=== PATIENT | female | born 1940 | race Caucasian/White ===

== ENCOUNTER 2017-03-11 10:29 | Inpatient (IN) | payer MEDICARE, BC ==
[~2017-03-11] VITALS: Ht 170.2 cm; Wt 72.8 kg
[~2017-03-11 10:29] MED LIST: ATEN25TA PO; DICL75TA5 PO; SIMV20TA5 PO; TRIA1CAP6 PO
[2017-03-11 11:10] LABS: CLARITY,URINE CLOUDY (Clear); GLUCOSE, URINE NEGATIVE (Neg); KETONES,URINE NEGATIVE (Neg); LEUKOCYTE ESTERASE ,URINE NEGATIVE (Neg); NITRITES, URINE NEGATIVE (Neg); OCCULT BLOOD,URINE NEGATIVE (Neg); PROTEIN,URINE NEGATIVE (Neg)
[2017-03-11 11:22] LABS: COLOR,URINE DARK YELLOW (Yellow); UA COLLECTION TYPE CLN CATCH MIDSTREAM
[2017-03-11 11:29] LABS: BACTERIA,URINE 2+ /HPF (Neg); MUCUS STRANDS MODERATE /LPF (Neg); RBC,URINE 0-2 /HPF (0-2); SQUAMOUS EPITHELIAL CELL,UR MANY /LPF (FEW); WBC,URINE 0-4 /HPF (0-4)
[2017-03-11 11:30] LABS: CAL OXALATE CRYSTALS FEW /HPF (NEGATIVE)
[2017-03-11] MEDS ORDERED: normal saline 1000ML IV soln IVB ONE (11:45)
[2017-03-11] MEDS ORDERED: ondansetron/PF 4mg/2ml inj IV ONE (11:45)
[2017-03-11] MEDS ORDERED: morphine 5 MG/ML injection IM ONE (11:45)
[2017-03-11 11:56] LABS: BASOPHILS # (AUTO) 0.1 X10'3 (0-0.2); BASOPHILS % (AUTO) 0.9 % (0-1); EOSINOPHILS # (AUTO) 0.1 X10'3 (0-0.9); EOSINOPHILS % (AUTO) 1.4 % (0-6); HEMATOCRIT 38.2 % (35.0-45.0); HEMOGLOBIN 12.9 g/dl (12.0-16.0); LYMPHOCYTES # (AUTO) 1.1 X10'3 (1.1-4.8); MEAN CORPUSCULAR HEMOGLOBIN 30.7 PG (27.0-31.0); MEAN CORPUSCULAR HGB CONC 33.8 % (33.0-36.5); MEAN CORPUSCULAR VOLUME 90.8 FL (78-98); MEAN PLATELET VOLUME 7.4 FL (7.4-10.4); MONOCYTES # (AUTO) 0.6 X10'3 (0-0.9); MONOCYTES % (AUTO) 7.4 % (2-12); NEUTROPHILS # (AUTO) 6.4 X10'3 (1.8-7.7); NEUTROPHILS % (AUTO) 77.3 % (42-75); PLATELET COUNT 358 X10'3 (140-440); RED CELL DISTRIBUTION WIDTH 13.4 % (11.5-14.5); WHITE BLOOD COUNT 8.3 X10'3 (4.5-11.0)
[2017-03-11 12:14] LABS: ALANINE AMINOTRANSFERASE 371 U/L (12-78); ALBUMIN 3.6 G/DL (3.4-5.0); ALBUMIN/GLOBULIN RATIO 0.9 (1.1-1.5); ALKALINE PHOSPHATASE 323 IU/L (46-116); AMYLASE 122 U/L (25-115); ANION GAP 12 (8-16); ASPARTATE AMINO TRANSFERASE 167 U/L (10-37); BILIRUBIN,TOTAL 7.6 MG/DL (0.1-1.0); BLOOD UREA NITROGEN 35 MG/DL (7-18); BUN/CREATININE RATIO 25.9 (6.6-38.0); CALCIUM 9.7 MG/DL (8.5-10.1); CHLORIDE 92 MMOL/L (99-107); CREATININE 1.35 MG/DL (0.40-0.90); GLUCOSE 146 MG/DL (70-104); LIPASE 1399 U/L (73-393); POTASSIUM 4.6 MMOL/L (3.5-5.1); SODIUM 130 MMOL/L (135-145); TOTAL CARBON DIOXIDE 26.3 MMOL/L (24-32); TOTAL PROTEIN 7.8 G/DL (6.4-8.2); eGFR 38 ML/MIN
[2017-03-11] MEDS ORDERED: piperacillin/tazo 3.375gm/50ml 50 ML IV STA (12:50)
[2017-03-11] MEDS: normal saline 1000ml 1,000 ML IV SCH ×3 (13:22→19:35)
[2017-03-11] MEDS ORDERED: HYDROmorphone 1 mg/ml syringe IV PRN ×2 (13:25)
[2017-03-11] MEDS ORDERED: magnesium 4gm in 100ml NS 100 ML IV PRN (13:25)
[2017-03-11] MEDS ORDERED: magnesium 2GM in 50ml NS 50 ML IV PRN (13:25)
[2017-03-11] MEDS ORDERED: metoclopramide 5 mg/ml inj IV PRN (13:25)
[2017-03-11] MEDS ORDERED: acetaminophen 325mg tablet PO PRN ×2 (13:25)
[2017-03-11] MEDS ORDERED: potassium Cl 20 mEq SR tablet PO PRN ×2 (13:25)
[2017-03-11] MEDS ORDERED: acetaminophen 650mg rectal suppository RC PRN (13:25)
[2017-03-11] MEDS ORDERED: magnesium Cl slow-release 64mg tablet PO PRN (13:25)
[2017-03-11] MEDS ORDERED: morphine sulfate 8 MG/ML SYRINGE IV PRN (13:25)
[2017-03-11] MEDS ORDERED: magnesium hydroxide 30ml (MOM) UD suspension PO PRN (13:25)
[2017-03-11] MEDS ORDERED: ondansetron/PF 4mg/2ml inj IV PRN (13:25)
[2017-03-11] MEDS ORDERED: potassium Cl 40MEQ/NS 500ml 500 ML IV PRN ×2 (13:25)
[2017-03-11] MEDS ORDERED: mag hydrox/Alum hydrox/simeth 30ml oral suspension PO PRN (13:25)
[2017-03-11] MEDS ORDERED: bisacodyl 10mg suppository rectal RC PRN (13:25)
[2017-03-11] MEDS ORDERED: LISI-604 PO (14:48)
[2017-03-11 18:55] VITALS: BP 121/67
[2017-03-11 20:00] VITALS: BP 97/54
[2017-03-11] MEDS: LORazepam 1 MG tablet PO PRN (22:00)
[2017-03-12] VITALS (21 sets, daily range): BP systolic 98–142; BP diastolic 53–84
[2017-03-12] MEDS: normal saline 1000ml 1,000 ML IV SCH ×2 (04:50→22:04)
[2017-03-12 06:45] LABS: BASOPHILS % (AUTO) 0.4 % (0-1); EOSINOPHILS # (AUTO) 0.2 X10'3 (0-0.9); EOSINOPHILS % (AUTO) 3.1 % (0-6); HEMATOCRIT 32.9 % (35.0-45.0); LYMPHOCYTES # (AUTO) 1.1 X10'3 (1.1-4.8); LYMPHOCYTES % (AUTO) 16.7 % (21-51); MEAN CORPUSCULAR HEMOGLOBIN 30.9 PG (27.0-31.0); MEAN CORPUSCULAR HGB CONC 33.5 % (33.0-36.5); MEAN CORPUSCULAR VOLUME 92.1 FL (78-98); MEAN PLATELET VOLUME 7.8 FL (7.4-10.4); MONOCYTES # (AUTO) 0.8 X10'3 (0-0.9); MONOCYTES % (AUTO) 11.3 % (2-12); NEUTROPHILS # (AUTO) 4.7 X10'3 (1.8-7.7); NEUTROPHILS % (AUTO) 68.5 % (42-75); PLATELET COUNT 318 X10'3 (140-440); RED BLOOD COUNT 3.58 X10'6 (4.20-5.60); RED CELL DISTRIBUTION WIDTH 13.8 % (11.5-14.5); WHITE BLOOD COUNT 6.8 X10'3 (4.5-11.0)
[2017-03-12 06:48] LABS: MAGNESIUM 2.4 MG/DL (1.5-2.4)
[2017-03-12] MEDS: K and/or MAG REPLACEMENT MC SCH ×2 (08:00→08:10)
[2017-03-12 09:01] LABS: ALANINE AMINOTRANSFERASE 305 U/L (12-78); ALBUMIN 3.1 G/DL (3.4-5.0); ALBUMIN/GLOBULIN RATIO 0.9 (1.1-1.5); ALKALINE PHOSPHATASE 265 IU/L (46-116); ASPARTATE AMINO TRANSFERASE 124 U/L (10-37); BILIRUBIN,DIRECT 6.4 MG/DL (0-0.3); BILIRUBIN,TOTAL 7.9 MG/DL (0.1-1.0); TOTAL PROTEIN 6.5 G/DL (6.4-8.2)
[2017-03-12] MEDS ORDERED: fentaNYL/PF 50MCG/1 ML 2ML syringe ONE (15:07)
[2017-03-12] MEDS ORDERED: meperidine/PF 100mg/ml syringe ONE (15:07)
[2017-03-12] MEDS ORDERED: MIDAZolam 1mg/ml 10ml vial ONE (15:07)
[2017-03-12] MEDS ORDERED: iohexol 300 MG/1 ML 50ml polymer ONE (15:08)
[2017-03-12] MEDS ORDERED: diphenhydrAMINE 50 mg/ml inj ONE (15:08)
[2017-03-12] MEDS ORDERED: LIDOcaine Viscous 15ml cup ONE (15:08)
[2017-03-12] MEDS ORDERED: glucagon, human recombinant 1mg kit ONE (15:08)
[2017-03-12] MEDS ORDERED: levoFLOXACIN-Levaquin 500mg/D5 100 ML IV ONE ×2 (15:08→15:35)
[2017-03-12] MEDS ORDERED: normal saline 1000ml 1,000 ML IV SCH (15:31)
[2017-03-12] MEDS ORDERED: glucagon, human recombinant 1mg kit IV PRN (15:35)
[2017-03-12] MEDS ORDERED: MIDAZolam 5mg/5ml vial IV PRN (15:35)
[2017-03-12] MEDS ORDERED: ringers solution, lacted 1,000 ML IV ONE (15:35)
[2017-03-12] MEDS ORDERED: iohexol 300 MG/1 ML 50ml polymer IV ONE (15:35)
[2017-03-12] MEDS ORDERED: LIDOcaine Viscous 15ml cup PO ONE (15:35)
[2017-03-12] MEDS ORDERED: fentaNYL/PF 50MCG/1 ML 2ML syringe IV PRN (15:35)
[2017-03-12] MEDS ORDERED: diatrozoate meglu/diatrozoate sod (37% iodine) 120ML oral solution PO SCH (22:00)
[2017-03-12] MEDS: diatr meglu/diatrizoate 30ml oral sol.-(3 dose) bottle PO SCH (22:59)
[2017-03-12] MEDS: LORazepam 1 MG tablet PO PRN (23:05)
[2017-03-13 04:30] VITALS: BP 113/67
[2017-03-13] MEDS: normal saline 1000ml 1,000 ML IV SCH ×2 (05:22→07:38)
[2017-03-13 06:00] LABS: BASOPHILS % (AUTO) 0.4 % (0-1); EOSINOPHILS # (AUTO) 0.2 X10'3 (0-0.9); EOSINOPHILS % (AUTO) 2.2 % (0-6); HEMATOCRIT 36.5 % (35.0-45.0); HEMOGLOBIN 12.4 g/dl (12.0-16.0); LYMPHOCYTES # (AUTO) 1.7 X10'3 (1.1-4.8); MEAN CORPUSCULAR HEMOGLOBIN 30.9 PG (27.0-31.0); MEAN CORPUSCULAR HGB CONC 33.9 % (33.0-36.5); MEAN CORPUSCULAR VOLUME 91.2 FL (78-98); MEAN PLATELET VOLUME 7.8 FL (7.4-10.4); MONOCYTES # (AUTO) 0.5 X10'3 (0-0.9); MONOCYTES % (AUTO) 6.9 % (2-12); NEUTROPHILS # (AUTO) 5.2 X10'3 (1.8-7.7); NEUTROPHILS % (AUTO) 68.5 % (42-75); PLATELET COUNT 354 X10'3 (140-440); RED CELL DISTRIBUTION WIDTH 13.6 % (11.5-14.5); WHITE BLOOD COUNT 7.6 X10'3 (4.5-11.0)
[2017-03-13 06:24] LABS: ALANINE AMINOTRANSFERASE 328 U/L (12-78); ALBUMIN 3.3 G/DL (3.4-5.0); ALBUMIN/GLOBULIN RATIO 0.8 (1.1-1.5); ALKALINE PHOSPHATASE 290 IU/L (46-116); ASPARTATE AMINO TRANSFERASE 128 U/L (10-37); BILIRUBIN,DIRECT 3.8 MG/DL (0-0.3); BILIRUBIN,TOTAL 4.9 MG/DL (0.1-1.0); LIPASE 1184 U/L (73-393); MAGNESIUM 2.1 MG/DL (1.5-2.4); TOTAL PROTEIN 7.4 G/DL (6.4-8.2)
[2017-03-13] MEDS: diatr meglu/diatrizoate 30ml oral sol.-(3 dose) bottle PO SCH (07:34)
[2017-03-13 08:00] VITALS: BP 127/70
[2017-03-13] MEDS ORDERED: iohexol 300mg/ml 100ml inj. ONE (09:26)
[2017-03-13 11:00] VITALS: BP 127/67
[2017-03-18 08:13] LABS: CARCINOEMBRYONIC ANTIGEN 5.8 ng/mL (0.0-4.7)
== END 2017-03-13 17:18 | disposition home or self-care (01) | DRG 438 ==
LOC: ER 10:30 → ED HOLD 13:26 → SUR 3N 15:45
PROVIDERS: ADMIT Internal Medicine; ATTEND Internal Medicine
PROC: 0F798DZ Dilation of Common Bile Duct with Intraluminal Device, Via Natural or Artificial Opening Endoscopic (ICD-10-PCS; principal; 2017-03-12)
PROC: BF101ZZ Fluoroscopy of Bile Ducts using Low Osmolar Contrast (ICD-10-PCS; 2017-03-12)
PROC: 0FB98ZX Excision of Common Bile Duct, Via Natural or Artificial Opening Endoscopic, Diagnostic (ICD-10-PCS; 2017-03-12)
PROC: BW211ZZ Computerized Tomography (CT Scan) of Abdomen and Pelvis using Low Osmolar Contrast (ICD-10-PCS; 2017-03-13)
DX: K85.10 Biliary acute pancreatitis without necrosis or infection (principal); N17.0 Acute kidney failure with tubular necrosis; K83.1 Obstruction of bile duct; E87.1 Hypo-osmolality and hyponatremia; K80.61 Calculus of gallbladder and bile duct with cholecystitis, unspecified, with obstruction; F17.210 Nicotine dependence, cigarettes, uncomplicated; E78.5 Hyperlipidemia, unspecified; E86.1 Hypovolemia; I10 Essential (primary) hypertension; R73.03 Prediabetes; R74.0 Nonspecific elevation of levels of transaminase and lactic acid dehydrogenase [LDH]; R74.8 Abnormal levels of other serum enzymes; Z91.048 Other nonmedicinal substance allergy status; Z79.899 Other long term (current) drug therapy
CPT/HCPCS: 36415; 74178; 76700; 80053; 80076; 81001; 82150; 82378; 83690; 83735; 85025; 85610; 86301; 87070; 96365; 99285; A4620; G0500; J1200; J1610; J1956; J2175; J2250; J2405; J2543; J3010; J7030; Q9963; Q9967

== ENCOUNTER 2017-12-28 16:50 | Inpatient (IN) | payer MEDICARE, BC ==
[~2017-12-28] VITALS: Ht 171.4 cm; Wt 52.7 kg
[~2017-12-28 16:50] MED LIST changes: -ATEN25TA PO; -DICL75TA5 PO; +LISI-604 PO
[2017-12-28] MEDS ORDERED: normal saline 1000ML IV soln IVB ONE (17:05)
[2017-12-28] MEDS ORDERED: ondansetron/PF 4mg/2ml inj IV ONE (17:05)
[2017-12-28 17:40] LABS: INR 1.5 INR; PROTHROMBIN TIME 14.9 SECONDS (9.0-12.0)
[2017-12-28 17:42] LABS: ALANINE AMINOTRANSFERASE 40 U/L (12-78); ALBUMIN 2.7 G/DL (3.4-5.0); ALKALINE PHOSPHATASE 56 IU/L (46-116); ANION GAP 5 (8-16); ASPARTATE AMINO TRANSFERASE 20 U/L (10-37); BILIRUBIN,TOTAL 0.8 MG/DL (0.1-1.0); BLOOD UREA NITROGEN 26 MG/DL (7-18); CALCIUM 8.3 MG/DL (8.5-10.1); CHLORIDE 88 MMOL/L (99-107); CREATININE 1.37 MG/DL (0.40-0.90); GLUCOSE 179 MG/DL (70-104); POTASSIUM 3.1 MMOL/L (3.5-5.1); SODIUM 123 MMOL/L (135-145); TOTAL CARBON DIOXIDE 30.2 MMOL/L (24-32); TOTAL PROTEIN 5.4 G/DL (6.4-8.2); eGFR 37 ML/MIN
[2017-12-28 17:48] LABS: BASOPHILS % (AUTO) 0.1 % (0-1); EOSINOPHILS % (AUTO) 0.4 % (0-6); HEMATOCRIT 36.2 % (35.0-45.0); HEMOGLOBIN 12.3 g/dl (12.0-16.0); LYMPHOCYTES # (AUTO) 0.1 X10'3 (1.1-4.8); LYMPHOCYTES % (AUTO) 5.6 % (21-51); MEAN CORPUSCULAR HEMOGLOBIN 30.1 PG (27.0-31.0); MEAN CORPUSCULAR VOLUME 88.3 FL (78-98); MEAN PLATELET VOLUME 7.5 FL (7.4-10.4); MONOCYTES # (AUTO) 0.1 X10'3 (0-0.9); MONOCYTES % (AUTO) 13.1 % (2-12); NEUTROPHILS # (AUTO) 0.9 X10'3 (1.8-7.7); NEUTROPHILS % (AUTO) 80.8 % (42-75); PLATELET COUNT 176 X10'3 (140-440); RED CELL DISTRIBUTION WIDTH 21.9 % (11.5-14.5); WHITE BLOOD COUNT 1.1 X10'3 (4.5-11.0)
[2017-12-28 18:09] LABS: PLATELET ESTIMATE NORMAL; TOTAL CELLS COUNTED 100
[2017-12-28 18:10] LABS: ANISOCYTOSIS 3+
[2017-12-28 18:11] LABS: ELLIPTOCYTES 1+; POIKILOCYTOSIS 1+; POLYCHROMASIA FEW; SCHISTOCYTES FEW; TEAR DROP CELLS FEW
[2017-12-28 18:15] LABS: TOXIC GRANULATION 2+
[2017-12-28] MEDS ORDERED: POTA20TA19 PO (18:43)
[2017-12-28] MEDS ORDERED: PROC-8 (18:43)
[2017-12-28] MEDS ORDERED: HYDR-4353 PO (18:43)
[2017-12-28] MEDS ORDERED: METF500T PO (18:43)
[2017-12-28] MEDS ORDERED: FURO40TA4 PO (18:43)
[2017-12-28] MEDS ORDERED: ONDA4TAB9 SL (18:43)
[2017-12-28] MEDS ORDERED: GABA600T2 PO ×2 (18:43)
[2017-12-28 19:13] LABS: CLARITY,URINE CLEAR (Clear); COLOR,URINE YELLOW (Yellow); GLUCOSE, URINE NEGATIVE (Neg); KETONES,URINE NEGATIVE (Neg); LEUKOCYTE ESTERASE ,URINE NEGATIVE (Neg); NITRITES, URINE NEGATIVE (Neg); OCCULT BLOOD,URINE NEGATIVE (Neg); PROTEIN,URINE NEGATIVE (Neg); UROBILINOGEN,URINE 0.2 E.U/dL (0.2-1.0)
[2017-12-28 19:15] LABS: UA COLLECTION TYPE STRAIGHT CATH
[2017-12-28] MEDS ORDERED: piperacillin/tazo 3.375gm/50ml 50 ML IV ONE (19:35)
[2017-12-28] MEDS ORDERED: diphenhydrAMINE 25mg capsule PO PRN (20:00)
[2017-12-28] MEDS ORDERED: HYDROmorphone 1 mg/ml syringe IV PRN ×2 (20:00)
[2017-12-28] MEDS ORDERED: HYDROcodone/acetaminophen 10/325mg tab PO PRN (20:00)
[2017-12-28] MEDS ORDERED: diphenhydrAMINE 50 mg/ml inj IV PRN (20:00)
[2017-12-28] MEDS ORDERED: heparin, porcine 5000 units/ml vial SQ SCH (20:00)
[2017-12-28] MEDS: pantoprazole 40 MG vial IV SCH (20:00)
[2017-12-28] MEDS: docusate sod 100mg capsule PO SCH (20:00)
[2017-12-28] MEDS ORDERED: acetaminophen 650mg rectal suppository RC PRN (20:00)
[2017-12-28] MEDS ORDERED: magnesium hydroxide 30ml (MOM) UD suspension PO PRN (20:00)
[2017-12-28] MEDS ORDERED: acetaminophen 325mg tablet PO PRN ×2 (20:00)
[2017-12-28] MEDS ORDERED: mag hydrox/Alum hydrox/simeth 30ml oral suspension PO PRN (20:00)
[2017-12-28] MEDS ORDERED: bisacodyl 10mg suppository rectal RC PRN (20:00)
[2017-12-28] MEDS ORDERED: morphine 2 MG/ML inj. syringe IV PRN ×2 (20:00)
[2017-12-28] MEDS ORDERED: proCHLORperazine 10 MG/2 ml inj IV PRN (20:15)
[2017-12-28] MEDS ORDERED: MESSAGE TO PHARMACY PO ONE (20:15)
[2017-12-28] MEDS ORDERED: dextrose ORAL solution 15 GM/59 ML bottle PO PRN ×2 (20:15)
[2017-12-28] MEDS ORDERED: glucagon, human recombinant 1mg kit SUBCUT PRN (20:15)
[2017-12-28] MEDS ORDERED: insulin Lispro (HumaLOG) vial - multi-dose SQ SCH (20:15)
[2017-12-28] MEDS ORDERED: dextrose 50%-water 50ml dispensing syringe IV PRN ×2 (20:15)
[2017-12-28] MEDS ORDERED: potassium Cl 20 mEq SR tablet PO PRN ×2 (20:15)
[2017-12-28 20:32] LABS: HEMOGLOBIN A1C 7.1 % (4.5-6.2)
[2017-12-28 20:47] LABS: LIPASE < 50 U/L (73-393); TROPONIN I < 0.04 NG/ML (0.0-0.05)
[2017-12-28] MEDS ORDERED: non-formulary drug (Gabapentin 2 TAB) PO SCH (21:00)
[2017-12-28] MEDS ORDERED: temazepam 15mg capsule PO PRN (21:00)
[2017-12-28] MEDS ORDERED: SIMVASTATIN PO SCH (21:00)
[2017-12-28 21:05] VITALS: BP 120/63
[2017-12-28] MEDS: potassium Cl 20mEq in NS 1,000 ML IV SCH (21:08)
[2017-12-28] MEDS: atorvastatin 20mg tablet PO SCH (21:22)
[2017-12-28] MEDS: gabapentin 400mg capsule PO SCH (21:22)
[2017-12-28] MEDS: VANCOMYCIN 750MG IV in NS 250 ML IV SCH (22:20)
[2017-12-29] MEDS: piperacillin-tazo 2.25gm/50ml 50 ML IV SCH ×3 (00:16→16:03)
[2017-12-29] MEDS: psyllium seed 3.4 gm packet PO SCH (00:20)
[2017-12-29 02:00] VITALS: BP 96/54
[2017-12-29 04:15] VITALS: BP 111/54
[2017-12-29 05:00] VITALS: BP 82/52
[2017-12-29] MEDS ORDERED: normal saline 250ml IV soln 250 ML IV ONE (05:10)
[2017-12-29 05:47] VITALS: BP 113/60
[2017-12-29 06:04] LABS: BASOPHILS % (AUTO) 0 % (0-1); EOSINOPHILS % (AUTO) 0.6 % (0-6); HEMOGLOBIN 10.4 g/dl (12.0-16.0); MEAN CORPUSCULAR HGB CONC 33.7 % (33.0-36.5); MONOCYTES # (AUTO) 0.2 X10'3 (0-0.9); MONOCYTES % (AUTO) 10.1 % (2-12); NEUTROPHILS # (AUTO) 1.5 X10'3 (1.8-7.7); NEUTROPHILS % (AUTO) 87.3 % (42-75); PLATELET COUNT 139 X10'3 (140-440); RED BLOOD COUNT 3.48 X10'6 (4.20-5.60); RED CELL DISTRIBUTION WIDTH 20.5 % (11.5-14.5); WHITE BLOOD COUNT 1.7 X10'3 (4.5-11.0)
[2017-12-29 06:25] LABS: ALANINE AMINOTRANSFERASE 34 U/L (12-78); ALBUMIN 2.1 G/DL (3.4-5.0); ALBUMIN/GLOBULIN RATIO 0.9 (1.1-1.5); ALKALINE PHOSPHATASE 50 IU/L (46-116); ANION GAP 9 (8-16); ASPARTATE AMINO TRANSFERASE 26 U/L (10-37); BILIRUBIN,TOTAL 0.8 MG/DL (0.1-1.0); BLOOD UREA NITROGEN 25 MG/DL (7-18); BUN/CREATININE RATIO 18.5 (6.6-38.0); CHLORIDE 94 MMOL/L (99-107); CREATININE 1.35 MG/DL (0.40-0.90); GLUCOSE 161 MG/DL (70-104); SODIUM 129 MMOL/L (135-145); TOTAL CARBON DIOXIDE 26.4 MMOL/L (24-32); TOTAL PROTEIN 4.4 G/DL (6.4-8.2); eGFR 38 ML/MIN
[2017-12-29 06:29] LABS: TOTAL CELLS COUNTED 100
[2017-12-29 06:30] LABS: ANISOCYTOSIS 2+; LARGE PLATELETS FEW; PLATELET ESTIMATE DECREASED; TOXIC GRANULATION 2+
[2017-12-29 06:34] LABS: POTASSIUM 2.7 MMOL/L (3.5-5.1)
[2017-12-29] MEDS: potassium Cl 20mEq in NS 1,000 ML IV SCH ×3 (07:05→19:36)
[2017-12-29] MEDS: docusate sod 100mg capsule PO SCH ×2 (07:15→19:46)
[2017-12-29] MEDS: gabapentin 300mg capsule PO SCH (07:15)
[2017-12-29] MEDS: pantoprazole 40 MG vial IV SCH (07:32)
[2017-12-29] MEDS ORDERED: non-formulary drug (Gabapentin 1 TAB) PO SCH (08:00)
[2017-12-29 10:00] VITALS: BP 98/66
[2017-12-29] MEDS ORDERED: potassium Cl 40MEQ/NS 500ml 500 ML IV PRN ×2 (10:10)
[2017-12-29] MEDS ORDERED: magnesium Cl slow-release 64mg tablet PO PRN (10:10)
[2017-12-29] MEDS ORDERED: dextrose ORAL solution 15 GM/59 ML bottle PO PRN ×2 (10:10)
[2017-12-29] MEDS ORDERED: magnesium 4gm in 100ml NS 100 ML IV PRN (10:10)
[2017-12-29] MEDS ORDERED: glucagon, human recombinant 1mg kit SUBCUT PRN (10:10)
[2017-12-29] MEDS ORDERED: dextrose 50%-water 50ml dispensing syringe IV PRN ×2 (10:10)
[2017-12-29] MEDS ORDERED: MESSAGE TO PHARMACY PO ONE (10:10)
[2017-12-29] MEDS: potassium Cl 20 mEq SR tablet PO PRN ×2 (10:31→16:01)
[2017-12-29] MEDS: VANCOMYCIN 750MG IV in NS 250 ML IV SCH (10:31)
[2017-12-29 11:56] LABS: C DIFF ANTIGEN NEGATIVE (NEGATIVE); C DIFF SPECIMEN=DIARRHEA? ACCEPTABLE; C DIFFICILE TOXINS A&B NEGATIVE (Neg); OCCULT BLOOD STOOL POSITIVE (Neg)
[2017-12-29] MEDS: insulin Lispro (HumaLOG) vial - multi-dose SQ SCH ×2 (13:17→19:32)
[2017-12-29] MEDS: famotidine 20mg tablet PO SCH (13:24)
[2017-12-29] MEDS: ondansetron/PF 4mg/2ml inj IV PRN (16:04)
[2017-12-29] MEDS ORDERED: loperamide 2mg capsule PO ONE (18:50)
[2017-12-29] MEDS: heparin, porcine 5000 units/ml vial SQ SCH (21:16)
[2017-12-29] MEDS: gabapentin 400mg capsule PO SCH (21:16)
[2017-12-29] MEDS: atorvastatin 20mg tablet PO SCH (21:16)
[2017-12-29 22:00] VITALS: BP 102/57
[2017-12-29] MEDS: insulin glargine (Lantus) pen - multi-dose SQ SCH (22:15)
[2017-12-29] MEDS ORDERED: diphenoxylate/atropine tablet (Lomotil) PO ONE (23:40)
[2017-12-30] MEDS: piperacillin-tazo 2.25gm/50ml 50 ML IV SCH ×4 (00:20→23:39)
[2017-12-30 05:00] VITALS: BP 116/58
[2017-12-30 05:47] LABS: BASOPHILS % (AUTO) 0 % (0-1); EOSINOPHILS % (AUTO) 1.4 % (0-6); HEMATOCRIT 30.2 % (35.0-45.0); LYMPHOCYTES % (AUTO) 1.2 % (21-51); MEAN CORPUSCULAR HEMOGLOBIN 29.7 PG (27.0-31.0); MEAN CORPUSCULAR HGB CONC 33.2 % (33.0-36.5); MEAN CORPUSCULAR VOLUME 89.4 FL (78-98); MEAN PLATELET VOLUME 7.2 FL (7.4-10.4); MONOCYTES # (AUTO) 0.5 X10'3 (0-0.9); MONOCYTES % (AUTO) 15.3 % (2-12); NEUTROPHILS # (AUTO) 2.6 X10'3 (1.8-7.7); NEUTROPHILS % (AUTO) 82.1 % (42-75); PLATELET COUNT 133 X10'3 (140-440); RED BLOOD COUNT 3.37 X10'6 (4.20-5.60); RED CELL DISTRIBUTION WIDTH 22.4 % (11.5-14.5); WHITE BLOOD COUNT 3.1 X10'3 (4.5-11.0)
[2017-12-30] MEDS: potassium Cl 20mEq in NS 1,000 ML IV SCH ×2 (05:56→17:59)
[2017-12-30 06:17] LABS: ALANINE AMINOTRANSFERASE 27 U/L (12-78); ALBUMIN/GLOBULIN RATIO 0.8 (1.1-1.5); ALKALINE PHOSPHATASE 47 IU/L (46-116); ANION GAP 7 (8-16); ASPARTATE AMINO TRANSFERASE 18 U/L (10-37); BILIRUBIN,TOTAL 0.5 MG/DL (0.1-1.0); BLOOD UREA NITROGEN 19 MG/DL (7-18); BUN/CREATININE RATIO 18.3 (6.6-38.0); CALCIUM 7.1 MG/DL (8.5-10.1); CHLORIDE 101 MMOL/L (99-107); CREATININE 1.04 MG/DL (0.40-0.90); GLUCOSE 136 MG/DL (70-104); MAGNESIUM 1.8 MG/DL (1.5-2.4); PHOSPHORUS 2.1 MG/DL (2.3-4.5); POTASSIUM 3.2 MMOL/L (3.5-5.1); SODIUM 131 MMOL/L (135-145); TOTAL CARBON DIOXIDE 22.6 MMOL/L (24-32); TOTAL PROTEIN 4.4 G/DL (6.4-8.2); eGFR 52 ML/MIN
[2017-12-30 07:34] LABS: ANISOCYTOSIS 3+; BANDS% (MANUAL) 22 % (0-10); EOSINOPHILS % (MANUAL) 2 % (0-6); LYMPHOCYTES % (MANUAL) 1 % (21-51); MONOCYTES % (MANUAL) 13 % (2-12); NEUTROPHILS % (MANUAL) 62 % (42-75); PLATELET ESTIMATE DECREASED; TOTAL CELLS COUNTED 100
[2017-12-30 07:35] LABS: BURR CELLS 2+; ELLIPTOCYTES FEW; TOXIC GRANULATION 1+
[2017-12-30] MEDS: docusate sod 100mg capsule PO SCH ×2 (08:00→19:05)
[2017-12-30] MEDS: triamterene/HCTZ 37.5/25mg tablet PO SCH (08:00)
[2017-12-30] MEDS: gabapentin 300mg capsule PO SCH (08:20)
[2017-12-30] MEDS: famotidine 20mg tablet PO SCH (08:21)
[2017-12-30] MEDS: heparin, porcine 5000 units/ml vial SQ SCH ×2 (08:22→19:07)
[2017-12-30] MEDS: potassium Cl 20 mEq SR tablet PO PRN ×3 (08:23→20:33)
[2017-12-30] MEDS: insulin Lispro (HumaLOG) vial - multi-dose SQ SCH ×3 (08:42→19:09)
[2017-12-30 09:25] VITALS: BP 96/55
[2017-12-30] MEDS ORDERED: VANCOMYCIN LEVEL IV NR (09:30)
[2017-12-30] MEDS: loperamide 2mg capsule PO PRN ×2 (09:54→20:33)
[2017-12-30] MEDS: HYDROcodone/acetaminophen 5mg/325mg tablet PO PRN (10:36)
[2017-12-30] MEDS: diphenoxylate/atropine tablet (Lomotil) PO PRN ×2 (13:18→20:33)
[2017-12-30 18:00] VITALS: BP 112/70
[2017-12-30] MEDS: gabapentin 400mg capsule PO SCH (20:33)
[2017-12-30] MEDS: atorvastatin 20mg tablet PO SCH (20:33)
[2017-12-30] MEDS: psyllium seed 3.4 gm packet PO SCH (20:35)
[2017-12-30] MEDS: insulin glargine (Lantus) pen - multi-dose SQ SCH (20:44)
[2017-12-30 22:00] VITALS: BP 126/66
[2017-12-31] MEDS: potassium Cl 20mEq in NS 1,000 ML IV SCH ×2 (03:34→13:20)
[2017-12-31 05:00] VITALS: BP 123/74
[2017-12-31] MEDS: triamterene/HCTZ 37.5/25mg tablet PO SCH (08:00)
[2017-12-31] MEDS: docusate sod 100mg capsule PO SCH ×2 (08:00→20:00)
[2017-12-31] MEDS: piperacillin-tazo 2.25gm/50ml 50 ML IV SCH ×2 (08:14→16:49)
[2017-12-31 09:47] LABS: HEMATOCRIT 35.1 % (35.0-45.0); HEMOGLOBIN 11.7 g/dl (12.0-16.0); MEAN CORPUSCULAR HEMOGLOBIN 30.1 PG (27.0-31.0); MEAN CORPUSCULAR HGB CONC 33.3 % (33.0-36.5); MEAN CORPUSCULAR VOLUME 90.4 FL (78-98); MEAN PLATELET VOLUME 7.7 FL (7.4-10.4); PLATELET COUNT 156 X10'3 (140-440); RED BLOOD COUNT 3.88 X10'6 (4.20-5.60); RED CELL DISTRIBUTION WIDTH 23.7 % (11.5-14.5); WHITE BLOOD COUNT 3.1 X10'3 (4.5-11.0)
[2017-12-31 10:00] VITALS: BP 116/57
[2017-12-31 10:01] LABS: ALANINE AMINOTRANSFERASE 28 U/L (12-78); ALBUMIN/GLOBULIN RATIO 0.7 (1.1-1.5); ALKALINE PHOSPHATASE 56 IU/L (46-116); ANION GAP 13 (8-16); ASPARTATE AMINO TRANSFERASE 12 U/L (10-37); BILIRUBIN,TOTAL 0.8 MG/DL (0.1-1.0); BLOOD UREA NITROGEN 15 MG/DL (7-18); BUN/CREATININE RATIO 14.4 (6.6-38.0); CALCIUM 7.2 MG/DL (8.5-10.1); CHLORIDE 104 MMOL/L (99-107); CREATININE 1.04 MG/DL (0.40-0.90); GLUCOSE 170 MG/DL (70-104); MAGNESIUM 1.9 MG/DL (1.5-2.4); PHOSPHORUS 1.9 MG/DL (2.3-4.5); POTASSIUM 3.7 MMOL/L (3.5-5.1); SODIUM 133 MMOL/L (135-145); TOTAL CARBON DIOXIDE 16.1 MMOL/L (24-32); TOTAL PROTEIN 4.8 G/DL (6.4-8.2); eGFR 52 ML/MIN
[2017-12-31] MEDS: insulin Lispro (HumaLOG) vial - multi-dose SQ SCH (10:08)
[2017-12-31] MEDS: heparin, porcine 5000 units/ml vial SQ SCH ×2 (10:18→21:33)
[2017-12-31] MEDS: gabapentin 300mg capsule PO SCH (10:18)
[2017-12-31] MEDS: famotidine 20mg tablet PO SCH (10:18)
[2017-12-31] MEDS ORDERED: heparin sodium, porcine/PF 100unit/ml 5ML syringe IV ONE (13:25)
[2017-12-31] MEDS: sodium bicarbonate (8.4%) inj. 100 MEQ in sodium chloride 0.45% 1,000 ML IV SCH (17:41)
[2017-12-31 18:00] VITALS: BP 105/60
[2017-12-31 19:52] LABS: ANISOCYTOSIS 3+; ELLIPTOCYTES FEW; PLATELET ESTIMATE NORMAL; POIKILOCYTOSIS 1+; TOTAL CELLS COUNTED 100
[2017-12-31 19:53] LABS: BURR CELLS 3+; TOXIC GRANULATION 3+
[2017-12-31] MEDS: atorvastatin 20mg tablet PO SCH (21:00)
[2017-12-31] MEDS: gabapentin 400mg capsule PO SCH (21:00)
[2017-12-31] MEDS: psyllium seed 3.4 gm packet PO SCH (21:00)
[2017-12-31] MEDS: insulin glargine (Lantus) pen - multi-dose SQ SCH (21:53)
[2017-12-31 22:00] VITALS: BP 107/54
[2018-01-01] MEDS: piperacillin-tazo 2.25gm/50ml 50 ML IV SCH ×2 (00:44→10:22)
[2018-01-01 02:00] VITALS: BP 98/48
[2018-01-01] MEDS: sodium bicarbonate (8.4%) inj. 100 MEQ in sodium chloride 0.45% 1,000 ML IV SCH ×2 (04:29→15:58)
[2018-01-01 05:00] VITALS: BP 98/49
[2018-01-01] MEDS: docusate sod 100mg capsule PO SCH ×2 (08:00→20:00)
[2018-01-01 10:00] VITALS: BP 121/56
[2018-01-01] MEDS: triamterene/HCTZ 37.5/25mg tablet PO SCH (10:22)
[2018-01-01] MEDS: gabapentin 300mg capsule PO SCH (10:22)
[2018-01-01] MEDS: famotidine 20mg tablet PO SCH (10:22)
[2018-01-01] MEDS: heparin, porcine 5000 units/ml vial SQ SCH ×2 (10:24→19:02)
[2018-01-01] MEDS: loperamide 2mg capsule PO PRN (10:24)
[2018-01-01] MEDS: HYDROcodone/acetaminophen 5mg/325mg tablet PO PRN (11:28)
[2018-01-01 11:40] LABS: ALANINE AMINOTRANSFERASE 20 U/L (12-78); ALBUMIN 1.7 G/DL (3.4-5.0); ALBUMIN/GLOBULIN RATIO 0.6 (1.1-1.5); ALKALINE PHOSPHATASE 56 IU/L (46-116); ANION GAP 15 (8-16); ASPARTATE AMINO TRANSFERASE 12 U/L (10-37); BLOOD UREA NITROGEN 18 MG/DL (7-18); BUN/CREATININE RATIO 19.1 (6.6-38.0); CALCIUM 7.8 MG/DL (8.5-10.1); CHLORIDE 106 MMOL/L (99-107); CREATININE 0.94 MG/DL (0.40-0.90); GLUCOSE 129 MG/DL (70-104); POTASSIUM 3.1 MMOL/L (3.5-5.1); SODIUM 138 MMOL/L (135-145); TOTAL CARBON DIOXIDE 16.8 MMOL/L (24-32); TOTAL PROTEIN 4.5 G/DL (6.4-8.2); eGFR 58 ML/MIN
[2018-01-01] MEDS: ondansetron/PF 4mg/2ml inj IV PRN ×2 (11:55→19:02)
[2018-01-01 12:24] LABS: BASOPHILS % (AUTO) 0 % (0-1); EOSINOPHILS % (AUTO) 0.9 % (0-6); HEMATOCRIT 29.4 % (35.0-45.0); HEMOGLOBIN 9.8 g/dl (12.0-16.0); LYMPHOCYTES # (AUTO) 0.1 X10'3 (1.1-4.8); MEAN CORPUSCULAR HEMOGLOBIN 30.1 PG (27.0-31.0); MEAN CORPUSCULAR HGB CONC 33.5 % (33.0-36.5); MEAN CORPUSCULAR VOLUME 89.7 FL (78-98); MONOCYTES # (AUTO) 0.4 X10'3 (0-0.9); MONOCYTES % (AUTO) 8.2 % (2-12); NEUTROPHILS # (AUTO) 4.8 X10'3 (1.8-7.7); NEUTROPHILS % (AUTO) 89.9 % (42-75); PLATELET COUNT 118 X10'3 (140-440); RED BLOOD COUNT 3.27 X10'6 (4.20-5.60); RED CELL DISTRIBUTION WIDTH 25.1 % (11.5-14.5); WHITE BLOOD COUNT 5.4 X10'3 (4.5-11.0)
[2018-01-01 12:38] LABS: ANISOCYTOSIS 3+; PLATELET ESTIMATE DECREASED; TOTAL CELLS COUNTED 100; TOXIC GRANULATION 2+
[2018-01-01 12:39] LABS: BURR CELLS 1+; POIKILOCYTOSIS FEW; SCHISTOCYTES FEW
[2018-01-01] MEDS ORDERED: potassium Cl 20 mEq SR tablet PO PRN ×2 (13:15)
[2018-01-01] MEDS ORDERED: magnesium 4gm in 100ml NS 100 ML IV PRN (13:15)
[2018-01-01] MEDS ORDERED: potassium Cl 40MEQ/NS 500ml 500 ML IV PRN (13:15)
[2018-01-01] MEDS ORDERED: magnesium Cl slow-release 64mg tablet PO PRN (13:15)
[2018-01-01 14:08] LABS: MAGNESIUM 1.9 MG/DL (1.5-2.4); PHOSPHORUS 1.8 MG/DL (2.3-4.5)
[2018-01-01] MEDS ORDERED: sodium phosphate inj. 30 MMOL in dextrose 5%-water 250 ML IV ONE (14:25)
[2018-01-01] MEDS: Neutra Phos packet PO SCH ×2 (15:58→23:30)
[2018-01-01 18:00] VITALS: BP 121/57
[2018-01-01] MEDS: amox tr/potassium clavulanate 875/125mg TAB PO SCH (18:07)
[2018-01-01] MEDS: lactobacillus rhamnosus 10,000 MMU CELLS/CAPSULE PO SCH (20:00)
[2018-01-01] MEDS: metoclopramide 5 mg/ml inj IV PRN (20:05)
[2018-01-01] MEDS: psyllium seed 3.4 gm packet PO SCH (20:21)
[2018-01-01] MEDS: atorvastatin 20mg tablet PO SCH (20:21)
[2018-01-01] MEDS: sodium bicarbonate 650mg tablet PO SCH (21:00)
[2018-01-01] MEDS: gabapentin 400mg capsule PO SCH (21:00)
[2018-01-01 22:00] VITALS: BP 114/74
[2018-01-01] MEDS: insulin glargine (Lantus) pen - multi-dose SQ SCH (23:09)
[2018-01-02] MEDS: potassium Cl 40MEQ/NS 500ml 500 ML IV PRN ×2 (00:20→18:56)
[2018-01-02] MEDS: sodium bicarbonate (8.4%) inj. 100 MEQ in sodium chloride 0.45% 1,000 ML IV SCH (03:54)
[2018-01-02 06:00] VITALS: BP 109/68
[2018-01-02 06:58] LABS: ALANINE AMINOTRANSFERASE 20 U/L (12-78); ALBUMIN 1.7 G/DL (3.4-5.0); ALBUMIN/GLOBULIN RATIO 0.7 (1.1-1.5); ALKALINE PHOSPHATASE 57 IU/L (46-116); ANION GAP 15 (8-16); ASPARTATE AMINO TRANSFERASE 10 U/L (10-37); BILIRUBIN,TOTAL 1.1 MG/DL (0.1-1.0); BLOOD UREA NITROGEN 19 MG/DL (7-18); BUN/CREATININE RATIO 19.6 (6.6-38.0); CALCIUM 7.8 MG/DL (8.5-10.1); CHLORIDE 105 MMOL/L (99-107); CREATININE 0.97 MG/DL (0.40-0.90); GLUCOSE 141 MG/DL (70-104); MAGNESIUM 1.8 MG/DL (1.5-2.4); PHOSPHORUS 1.8 MG/DL (2.3-4.5); POTASSIUM 3.5 MMOL/L (3.5-5.1); SODIUM 141 MMOL/L (135-145); TOTAL CARBON DIOXIDE 21.3 MMOL/L (24-32); TOTAL PROTEIN 4.3 G/DL (6.4-8.2); eGFR 56 ML/MIN
[2018-01-02] MEDS: metoclopramide 5 mg/ml inj IV PRN (07:20)
[2018-01-02] MEDS: heparin, porcine 5000 units/ml vial SQ SCH ×2 (07:21→19:20)
[2018-01-02] MEDS: docusate sod 100mg capsule PO SCH (08:00)
[2018-01-02] MEDS: triamterene/HCTZ 37.5/25mg tablet PO SCH (08:00)
[2018-01-02] MEDS: amox tr/potassium clavulanate 875/125mg TAB PO SCH ×2 (08:30→17:06)
[2018-01-02 08:38] LABS: ALANINE AMINOTRANSFERASE 19 U/L (12-78); ALBUMIN 1.8 G/DL (3.4-5.0); ALBUMIN/GLOBULIN RATIO 0.6 (1.1-1.5); ALKALINE PHOSPHATASE 61 IU/L (46-116); ANION GAP 15 (8-16); ASPARTATE AMINO TRANSFERASE 11 U/L (10-37); BILIRUBIN,TOTAL 1.2 MG/DL (0.1-1.0); BLOOD UREA NITROGEN 20 MG/DL (7-18); BUN/CREATININE RATIO 18.9 (6.6-38.0); CALCIUM 8.1 MG/DL (8.5-10.1); CHLORIDE 104 MMOL/L (99-107); CREATININE 1.06 MG/DL (0.40-0.90); GLUCOSE 151 MG/DL (70-104); POTASSIUM 3.4 MMOL/L (3.5-5.1); SODIUM 141 MMOL/L (135-145); TOTAL CARBON DIOXIDE 22.2 MMOL/L (24-32); TOTAL PROTEIN 4.6 G/DL (6.4-8.2); eGFR 50 ML/MIN
[2018-01-02 10:00] VITALS: BP 113/64
[2018-01-02] MEDS: loperamide 2mg capsule PO PRN ×2 (10:37→23:04)
[2018-01-02] MEDS: gabapentin 300mg capsule PO SCH ×2 (10:37→11:13)
[2018-01-02] MEDS: ondansetron/PF 4mg/2ml inj IV PRN (10:37)
[2018-01-02] MEDS: famotidine 20mg tablet PO SCH (10:38)
[2018-01-02] MEDS: sodium bicarbonate 650mg tablet PO SCH ×3 (10:38→20:06)
[2018-01-02] MEDS: lactobacillus rhamnosus 10,000 MMU CELLS/CAPSULE PO SCH ×2 (10:38→19:20)
[2018-01-02] MEDS: Neutra Phos packet PO SCH ×3 (10:39→23:04)
[2018-01-02] MEDS: propranolol 10mg tablet PO SCH ×2 (12:58→19:20)
[2018-01-02] MEDS ORDERED: scopolamine 1.5mg patch.TD72 TD SCH (14:00)
[2018-01-02 18:00] VITALS: BP 108/60
[2018-01-02] MEDS: insulin Lispro (HumaLOG) vial - multi-dose SQ SCH (19:21)
[2018-01-02] MEDS: atorvastatin 20mg tablet PO SCH (20:06)
[2018-01-02] MEDS: gabapentin 400mg capsule PO SCH (20:06)
[2018-01-02] MEDS: psyllium seed 3.4 gm packet PO SCH (20:07)
[2018-01-02] MEDS: insulin glargine (Lantus) pen - multi-dose SQ SCH (20:42)
[2018-01-02 22:00] VITALS: BP 102/53
[2018-01-03 05:00] VITALS: BP 97/48
[2018-01-03] MEDS: heparin, porcine 5000 units/ml vial SQ SCH (08:00)
[2018-01-03] MEDS: sodium bicarbonate 650mg tablet PO SCH ×2 (08:12→14:06)
[2018-01-03] MEDS: propranolol 10mg tablet PO SCH (08:12)
[2018-01-03] MEDS: Neutra Phos packet PO SCH (08:12)
[2018-01-03] MEDS: lactobacillus rhamnosus 10,000 MMU CELLS/CAPSULE PO SCH (08:12)
[2018-01-03] MEDS: famotidine 20mg tablet PO SCH (08:13)
[2018-01-03] MEDS: gabapentin 300mg capsule PO SCH (08:13)
[2018-01-03] MEDS: amox tr/potassium clavulanate 875/125mg TAB PO SCH (08:15)
[2018-01-03 09:00] VITALS: BP 93/44
== END 2018-01-03 15:04 | DRG 871 ==
LOC: ER 16:51 → ED HOLD 19:58 → ORTHO 4S 20:46
PROVIDERS: ADMIT Family Medicine; ATTEND Family Medicine
DX: A41.9 Sepsis, unspecified organism (principal); E43 Unspecified severe protein-calorie malnutrition; E87.1 Hypo-osmolality and hyponatremia; C25.9 Malignant neoplasm of pancreas, unspecified; D68.9 Coagulation defect, unspecified; E87.2 Acidosis; N17.9 Acute kidney failure, unspecified; Z68.1 Body mass index [BMI] 19.9 or less, adult; E86.0 Dehydration; D70.1 Agranulocytosis secondary to cancer chemotherapy; E11.9 Type 2 diabetes mellitus without complications; E78.5 Hyperlipidemia, unspecified; E86.1 Hypovolemia; E83.39 Other disorders of phosphorus metabolism; E87.6 Hypokalemia; F17.210 Nicotine dependence, cigarettes, uncomplicated; I10 Essential (primary) hypertension; K52.9 Noninfective gastroenteritis and colitis, unspecified; K64.9 Unspecified hemorrhoids; T45.1X5A Adverse effect of antineoplastic and immunosuppressive drugs, initial encounter; Z91.048 Other nonmedicinal substance allergy status; Z79.899 Other long term (current) drug therapy
CPT/HCPCS: 36415; 71045; 71250; 74176; 80053; 81003; 82140; 82272; 82948; 83036; 83605; 83690; 83735; 83880; 84100; 84145; 84443; 84484; 85025; 85610; 87040; 87045; 87046; 87070; 87324; 87449; 89055; 92616; 93306; 96361; 96374; 99285; C9113; J1642; J1644; J1815; J2405; J2543; J2765; J3370; J3480; J7030